=== PATIENT | male | born 1950 | race Two or more races ===

== ENCOUNTER → 2018-09-26 06:19 | Outpatient (CLI) | payer OTHER | END | disposition home or self-care (01) | LOC: LAB 06:19 | DX: I70.0 Atherosclerosis of aorta (principal); I10 Essential (primary) hypertension; D64.89 Other specified anemias; E11.9 Type 2 diabetes mellitus without complications; E78.00 Pure hypercholesterolemia, unspecified; E03.8 Other specified hypothyroidism; N39.0 Urinary tract infection, site not specified; N41.8 Other inflammatory diseases of prostate ==

== ENCOUNTER 2018-09-26 12:59 | Inpatient (IN) | payer OTHER ==
[~2018-09-26] VITALS: Ht 121.9 cm; Wt 5.0 kg
[2018-09-26] MEDS ORDERED: AVAPRO150 MG (13:21)
[2018-09-26] MEDS ORDERED: RANITIDINE HCL300 M1 (13:21)
--- NOTE | 2018-09-26 13:21 | NUR ---
SE RECIBE PTE ALERTA Y ORIENTADO X3,REFIERE QUE FUE A UN MEDICO A REALIZARSE ,[facility] [place] REFIERE QUE SE LOS HIZO AN EL PRESBY LO LLAMARON PARA NOTIFICARLE QUE ESTABAN ALTERADOS ,SE LE PRESENTA AL DR.CARLOS AVILA EL CUAL REFIERE QUE EL PTE SE ATIENDA POR OBSERVACION ,PTE REFIERER QUE NO PADECE DE NADA HASTA AHORA EL MEDICO LE ENCONTRO LA B/P ALTERADA LE RECETO MEDICAMENTOS.
--- NOTE | 2018-09-26 15:58 | NUR ---
SE ORIENTA PTE SOBRE EL TRATAMIENTO ORDENADO POR EL DR PulidoTUCKER PTE ALERTA Y CONCIENTE POR 3 RN ROUSE REALIZA MUESTRAS DE LABORATORIO. PTE SE MANTIENE EN OBSERVACION EN ESEPRA DE RESULTADO DE LABORATORIO.
--- NOTE | 2018-09-26 22:00 | NUR ---
SE ORIENTA AL PACIENTE SOBRE EL TX. SE INTENTA INSERTAR JARVIS CATETER BAJO MEDIDAS ESTERILES EN 2 OCASIONES SIN EXITO. SE NOTIFICA AL DR. MARTINEZ.
== END 2018-10-07 18:24 | disposition home or self-care (01) | DRG 683 ==
LOC: ER 12:59 → MEDJ 21:55
PROVIDERS: ADMIT Internal Medicine
PROC: BW21ZZZ Computerized Tomography (CT Scan) of Abdomen and Pelvis (ICD-10-PCS; principal; 2018-09-26)
DX: N17.8 Other acute kidney failure (principal); N41.0 Acute prostatitis; N13.8 Other obstructive and reflux uropathy; R33.8 Other retention of urine; N40.1 Benign prostatic hyperplasia with lower urinary tract symptoms; I10 Essential (primary) hypertension; R97.20 Elevated prostate specific antigen [PSA]; R31.0 Gross hematuria; N13.39 Other hydronephrosis; N28.1 Cyst of kidney, acquired; K80.80 Other cholelithiasis without obstruction; R53.1 Weakness; Z88.0 Allergy status to penicillin

== ENCOUNTER → 2018-09-26 | Outpatient (CLI) | payer OTHER ==
[~2018-09-26] MED LIST: AVAPRO150 MG; RANITIDINE HCL300 M1
== END | disposition home or self-care (01) ==
LOC: SONOGRAMA 07:40 → MAMO-SONO 07:45
DX: R10.9 Unspecified abdominal pain (principal)

== ENCOUNTER → 2018-10-24 06:13 | Outpatient (CLI) | payer OTHER | END | disposition home or self-care (01) | LOC: LAB 06:13 | DX: N30.00 Acute cystitis without hematuria (principal); R97.20 Elevated prostate specific antigen [PSA]; R31.1 Benign essential microscopic hematuria; D68.0 Von Willebrand disease; B96.89 Other specified bacterial agents as the cause of diseases classified elsewhere ==

== ENCOUNTER 2018-10-27 15:25 | Outpatient (CLI) | payer OTHER | END 2018-10-27 15:30 | disposition home or self-care (01) | LOC: LAB 15:25 | DX: R97.20 Elevated prostate specific antigen [PSA] (principal) ==

== ENCOUNTER 2018-11-05 07:10 | Outpatient (CLI) | payer OTHER | END 2018-11-05 07:20 | disposition home or self-care (01) | LOC: SONOGRAMA 07:10 | DX: R97.20 Elevated prostate specific antigen [PSA] (principal) ==

== ENCOUNTER 2018-11-20 06:52 | Outpatient (CLI) | payer OTHER | END 2018-11-20 07:21 | disposition home or self-care (01) | LOC: LAB 06:52 | DX: R33.8 Other retention of urine (principal); N41.0 Acute prostatitis; N40.1 Benign prostatic hyperplasia with lower urinary tract symptoms ==

== ENCOUNTER 2018-12-05 23:05 | Emergency (ER) | payer OTHER ==
[~2018-12-05] VITALS: Ht 162.6 cm; Wt 71.7 kg
== END 2018-12-06 01:17 | disposition home or self-care (01) ==
LOC: ER 23:05
DX: T83.038A Leakage of other urinary catheter, initial encounter (principal)

== ENCOUNTER 2018-12-10 08:45 | Inpatient (IN) | payer OTHER ==
[~2018-12-10] VITALS: Ht 152.4 cm; Wt 72.6 kg
[2018-12-10] MEDS ORDERED: NORVASC2.5 M1 PO (15:47)
[2018-12-10] MEDS ORDERED: FINASTERIDE5 MG PO (15:47)
== END 2018-12-19 14:14 | disposition home or self-care (01) | DRG 707 ==
LOC: ADM 08:45 → EDSTATUS 08:45 → SURH 12-15 08:45 → O/R 12-15 09:02 → SURH 12-15 09:02
PROVIDERS: ADMIT Urology
PROC: 0VTTXZZ Resection of Prepuce, External Approach (ICD-10-PCS; 2018-12-15)
PROC: 0VT00ZZ Resection of Prostate, Open Approach (ICD-10-PCS; principal; 2018-12-15 11:30)
DX: D29.1 Benign neoplasm of prostate (principal); N39.0 Urinary tract infection, site not specified; N40.1 Benign prostatic hyperplasia with lower urinary tract symptoms; R33.8 Other retention of urine; N47.1 Phimosis; B95.2 Enterococcus as the cause of diseases classified elsewhere

== ENCOUNTER 2019-04-03 06:43 | Outpatient (CLI) | payer OTHER ==
[~2019-04-03 06:43] MED LIST changes: +FINASTERIDE5 MG PO; +NORVASC2.5 M1 PO
== END 2019-04-03 06:48 | disposition home or self-care (01) ==
LOC: LAB 06:43
DX: N18.2 Chronic kidney disease, stage 2 (mild) (principal); E11.21 Type 2 diabetes mellitus with diabetic nephropathy; R80.8 Other proteinuria; E55.9 Vitamin D deficiency, unspecified; D64.89 Other specified anemias

== ENCOUNTER → 2019-05-08 06:42 | Outpatient (CLI) | payer OTHER | END | disposition home or self-care (01) | LOC: LAB 06:42 | DX: R97.20 Elevated prostate specific antigen [PSA] (principal); N40.1 Benign prostatic hyperplasia with lower urinary tract symptoms; R33.8 Other retention of urine ==

== ENCOUNTER 2020-06-16 07:47 | Outpatient (CLI) | payer OTHER | END 2020-06-16 08:02 | disposition home or self-care (01) | LOC: SONOGRAMA 07:47 | DX: K80.80 Other cholelithiasis without obstruction (principal); R10.84 Generalized abdominal pain ==

== ENCOUNTER 2022-05-13 15:40 | Emergency (ER) | payer OTHER ==
[~2022-05-13] VITALS: Ht 162.6 cm; Wt 72.6 kg
[2022-05-13] MEDS ORDERED: ALLERGY RELIE15.8 ML NS (17:22)
== END 2022-05-13 18:52 | disposition home or self-care (01) ==
LOC: ER 15:40
DX: K05.10 Chronic gingivitis, plaque induced (principal); Z88.0 Allergy status to penicillin

== ENCOUNTER 2024-12-09 13:16 | Outpatient (CLI) | payer OTHER ==
[~2024-12-09 13:16] MED LIST changes: +ALLERGY RELIE15.8 ML NS
== END 2024-12-09 13:24 | disposition home or self-care (01) ==
LOC: RAD 13:16
PROVIDERS: ATTEND Internal Medicine Cardiovascular Disease
DX: R07.9 Chest pain, unspecified (principal)